=== PATIENT | male | born 1985 | race Hispanic/Latino ===

== ENCOUNTER 2017-10-27 05:21 | Emergency (ER) | payer MEDICAID ==
[~2017-10-27] VITALS: Ht 182.9 cm; Wt 99.8 kg
[~2017-10-27 05:21] MED LIST: IBUPROFEN400 MG PO; TRAMADOL HCL50 MG PO
[2017-10-27] MEDS ORDERED: CYCLOBENZAPRINE10 MG PO (06:31)
== END 2017-10-27 06:40 | disposition home or self-care (01) ==
LOC: ED 05:21
DX: R10.9 Unspecified abdominal pain (principal)
CPT/HCPCS: 74176; 81001; 99284

== ENCOUNTER 2017-12-02 23:53 | Emergency (ER) | payer OTHER ==
[~2017-12-02] VITALS: Ht 182.9 cm; Wt 99.8 kg
[~2017-12-02 23:53] MED LIST changes: +CYCLOBENZAPRINE10 MG PO
[2017-12-03] MEDS ORDERED: IBUPROFEN400 MG PO (00:03)
[2017-12-03] MEDS ORDERED: NAPROXEN500 MG PO (00:50)
== END 2017-12-03 01:07 | disposition home or self-care (01) ==
LOC: ED 23:53
DX: S46.911A Strain of unspecified muscle, fascia and tendon at shoulder and upper arm level, right arm, initial encounter (principal); W20.8XXA Other cause of strike by thrown, projected or falling object, initial encounter; Y93.89 Activity, other specified; Y92.89 Other specified places as the place of occurrence of the external cause; Y99.0 Civilian activity done for income or pay
CPT/HCPCS: 73030; 99283

== ENCOUNTER → 2021-10-31 | Emergency (ER) | payer SELFPAY ==
[~2021-10-31] VITALS: Ht 182.9 cm; Wt 99.8 kg
[~2021-10-31] MED LIST changes: +NAPROXEN500 MG PO
== END ==
LOC: ED 16:04
DX: G51.0 Bell's palsy (principal); Z79.899 Other long term (current) drug therapy
CPT/HCPCS: 99283